=== PATIENT | female | born 1955 | race American Indian/Alaskan Native ===

== ENCOUNTER 2020-05-15 10:59 | Emergency (ER) | payer OTHER, MEDICARE ==
[~2020-05-15] VITALS: Ht 154.9 cm; Wt 59.0 kg
[2020-05-15] MEDS ORDERED: IBUP400 PO (11:37)
[2020-05-16] MEDS ORDERED: IBUP400 PO (13:20)
== END 2020-05-15 12:01 | disposition home or self-care (01) ==
LOC: ER 10:59
DX: S93.401A Sprain of unspecified ligament of right ankle, initial encounter (principal); M25.561 Pain in right knee; Z88.5 Allergy status to narcotic agent; F17.210 Nicotine dependence, cigarettes, uncomplicated; V03.90XA Pedestrian on foot injured in collision with car, pick-up truck or van, unspecified whether traffic or nontraffic accident, initial encounter; Y92.410 Unspecified street and highway as the place of occurrence of the external cause
CPT/HCPCS: 29505; 99283-25

== ENCOUNTER 2020-05-16 12:55 | Emergency (ER) | payer OTHER, MEDICARE ==
[~2020-05-16] VITALS: Ht 154.9 cm; Wt 59.0 kg
[~2020-05-16 12:55] MED LIST: IBUP400 PO
[2020-05-16] MEDS ORDERED: IBUP400 PO (13:20)
== END 2020-05-16 13:45 | disposition home or self-care (01) ==
LOC: ER 12:55
DX: S80.01XA Contusion of right knee, initial encounter (principal); F17.210 Nicotine dependence, cigarettes, uncomplicated; Z88.5 Allergy status to narcotic agent; V89.2XXA Person injured in unspecified motor-vehicle accident, traffic, initial encounter; Y92.410 Unspecified street and highway as the place of occurrence of the external cause
CPT/HCPCS: 99282

== ENCOUNTER 2021-12-06 07:57 | Day surgery (SDC) | payer OTHER, MEDICARE ==
[~2021-12-06] VITALS: Ht 154.9 cm; Wt 62.5 kg
[~2021-12-06 07:57] MED LIST changes: +MELO7.5 PO
--- NOTE | 2021-12-06 08:41 | NUR ---
INTO [facility] ADMISSION STARTED TO UNIT.
--- NOTE | 2021-12-06 08:42 | NUR ---
History, Chart, Medications and Allergies reviewed before start of procedure. Patient confirms NPO status and agrees with scheduled surgery.
--- NOTE | 2021-12-06 19:09 | NUR ---
SHIFT SUMMARY PT HAS BEEN DROWSY SINCE ARRIVAL TO UNIT BUT WAS ABLE TO WORK w/ THERAPY. DECLINED NOT TO SIT UP IN CHAIR FOR DINNER DUE TO LACK OF ORTHO CHAIR OR ANY RECLINING CHAIR. PAIN WELL MANAGED. EATING, DRINKING, VOIDING.
[2021-12-07 04:49] LABS: BASOPHILS ABSOLUTE AUTO 0.03 K/mm3 (0.00-0.23); BASOPHILS PERCENT AUTO 0 % (0-2); EOSINOPHILS ABSOLUTE AUTO 0.15 K/mm3 (0.00-0.68); EOSINOPHILS PERCENT AUTO 1 % (0-6); Hematocrit 31.9 % (33.0-51.0); Hemoglobin 10.5 g/dL (11.5-16.0); IMMATURE GRAN ABSOLUTE AUTO 0.05 K/mm3 (0.00-0.10); IMMATURE GRAN PERCENT AUTO 0 % (0-1); LYMPHOCYTES ABSOLUTE AUTO 2.17 K/mm3 (0.84-5.20); LYMPHOCYTES PERCENT AUTO 18 % (21-46); MONOCYTES ABSOLUTE AUTO 0.94 K/mm3 (0.16-1.47); MONOCYTES PERCENT AUTO 8 % (4-13); Mean Corpuscular HGB 30.6 pg (26.0-34.0); Mean Corpuscular HGB Conc 32.9 g/dL (31.5-36.5); Mean Corpuscular Volume 93 fL (80-100); Mean Platelet Volume 9.4 fL (9.1-12.4); NEUTROPHILS ABSOLUTE AUTO 8.94 K/mm3 (1.96-9.15); NEUTROPHILS PERCENT AUTO 73 % (41-73); Platelet Count 251 K/mm3 (150-400); RDW Coefficient Variation 12.8 % (11.7-14.2); RDW Standard Deviation 43.7 fL (35.1-46.3); Red Blood Cell Count 3.43 M/mm3 (3.80-5.20); White Blood Cell Count 12.28 K/mm3 (4.00-11.30)
[2021-12-07 05:21] LABS: Calcium, Blood 8.6 mg/dL (8.5-10.1); Creatinine, Blood 0.84 mg/dL (0.40-1.00); Potassium, Blood 3.8 mmol/L (3.5-5.5)
--- NOTE | 2021-12-07 06:00 | NUR ---
SUMMARY PT WAS SOMNOLENT AT BEGINNING OF SHIFT BUT WAS COMFORTABLE. PT SLEPT WELL. PT DID WAKE WITH PAIN AND WAS TX PER EMAR WITH RELIEF. PT HAS BEEN DRINKING FLUIDS AND VOIDING. PT HAS NO NEW ISSUES NOTED. PT CURRENTLY SLEEPING AND IN NO DISTRESS. CALL LIGHT IN REACH.
[2021-12-07] MEDS ORDERED: ASPI81CH PO (11:34)
[2021-12-07] MEDS ORDERED: Percocet 5-3251 EACH PO (11:34)
--- NOTE | 2021-12-07 12:06 | NUR ---
DISCHARGE SUMMARY PATIENT ALERT AND ORIENTED THROUGHOUT SHIFT. TOLERATING REGULAR DIET AND LIQUIDS. VOIDING WELL. AMBULATING IN ROOM AND HALLS WITH PT. PAIN CONTROLLED WITH PO PAIN MEDS. AQUACEL, RAOUL, TIMOTHY HOSE, AND POLAR PACK TO RIGHT KNEE. DISCHARGE EDUCATION GIVEN ON NEW MEDS, WOUND CARE, ACTIVITY, AND FOLLOW UP APPTS. PATIENT LEFT UNIT AT 1150 VIA WHEELCHAIR FOR HOME WITH SON.
== END 2021-12-07 11:53 | disposition home or self-care (01) ==
LOC: ORSCMMR 07:57 → ORD 09:15 → SURS 13:01 → ORSCMMR 12-07 11:53
PROVIDERS: Orthopaedic Surgery
PROC: 8E0Y0CZ Robotic Assisted Procedure of Lower Extremity, Open Approach (ICD-10-PCS; principal; 2021-12-06 09:15)
PROC: 0SRC0JA Replacement of Right Knee Joint with Synthetic Substitute, Uncemented, Open Approach (ICD-10-PCS; principal; 2021-12-06 09:15)
DX: M17.11 Unilateral primary osteoarthritis, right knee (principal); E11.9 Type 2 diabetes mellitus without complications; Z87.891 Personal history of nicotine dependence; Z79.899 Other long term (current) drug therapy
CPT/HCPCS: 27447; S2900; 36415; 73560-RT; 80048; 85025; 97110; 97116; 97162; 97530; A9270; C1776; J0171; J0690; J0735; J1885; J2060; J2250; J2270; J2704; J2795; J3010; J7120